=== PATIENT | female | born 1970 | race Hispanic/Latino ===

== ENCOUNTER 2016-12-31 07:44 | Emergency (ER) | payer MEDICAID, OTHER, SELFPAY ==
--- NOTE | 2016-12-31 08:42 | RAD ---
THREE VIEWS RIGHT SHOULDER: COMPARISON: None. HISTORY: Right shoulder pain. FINDINGS: Three views of the right shoulder show no evidence of acute fracture or dislocation. No soft tissue swelling is seen. No degenerative changes are present. IMPRESSION: Unremarkable exam. POS: JAYLA
== END 2016-12-31 09:05 | disposition home or self-care (01) ==
LOC: ERS 07:44
DX: S46.811A Strain of other muscles, fascia and tendons at shoulder and upper arm level, right arm, initial encounter (principal); J45.909 Unspecified asthma, uncomplicated; W06.XXXA Fall from bed, initial encounter

== ENCOUNTER 2019-04-13 19:44 | Emergency (ER) | payer BC, SELFPAY ==
--- NOTE | 2019-04-13 21:03 | RAD ---
Chest 2 views HISTORY: Dyspnea. Cough. FINDINGS: Cardiac silhouette and pulmonary vasculature are unremarkable. Mediastinum is midline allow ing for slight rightward convex curvature of the thoracic spine. Lungs are hyperinflated with flattening of each hemidiaphragm. Scattered calcified granulomata are consistent with healed granulomatous disease. No confluent airspa ce consolidation, pneumothorax, or pleural fluid. IMPRESSION: Pulmonary hyperinflation. No active cardiopulmonary abnormalities are otherwise demonstra fabien.
== END 2019-04-13 21:24 | disposition home or self-care (01) ==
LOC: ERS 19:44
DX: J20.9 Acute bronchitis, unspecified (principal); J45.909 Unspecified asthma, uncomplicated; F17.200 Nicotine dependence, unspecified, uncomplicated
CPT/HCPCS: 71046; 87804

== ENCOUNTER 2019-07-25 23:27 | Emergency (ER) | payer BC ==
[2019-07-26 00:01] LABS: #Eosinphils 0.1 thou/uL (0.0-0.7); #Lymphocytes 1.1 thou/uL (1.20-3.40); #Monocytes 0.7 thou/uL (0.11-0.59); #Neutrophils 8.7 thou/uL (1.40-6.50); %Basophils 0.3 % (0.0-1.0); %Eosinophils 1.1 % (0.0-10.0); %Lymphocytes 10.7 % (21.0-51.0); %Monocytes 6.1 % (0.0-10.0); %Neutrophils 81.8 % (42.0-75.0); Hemoglobin 15.2 g/dL (12.0-16.0); Mean Corpuscular HGB CONC 33.7 g/dL (32.0-36.0); Mean Corpuscular Hemoglobin 29.4 pg (27.0-31.0); Mean Corpuscular Volume 87.3 fL (78.0-98.0); Mean Platelet Volume 8.7 fL (7.4-10.4); Platelet Count 195 thou/uL (130-400); RBC Distribution Width 12.6 % (11.5-14.5); Red Blood Cell (RBC) Count 5.16 mill/uL (4.20-5.40); White Blood Cell (WBC) Count 10.6 thou/uL (4.8-10.8)
[2019-07-26 00:22] LABS: ALT (SGPT) 15 U/L (8-55); AST (SGOT) 16 U/L (5-34); Albumin 4.6 g/dL (3.5-5.0); Alkaline Phosphatase 90 U/L (40-110); Anion Gap 13 mmol/L (10-20); BUN (Urea Nitrogen) 18 mg/dL (7.0-18.7); Bilirubin, Total 0.5 mg/dL (0.2-1.2); Calc. Creatinine Clearance 0 mL/min (70-130); Calcium 9.4 mg/dL (7.8-10.44); Carbon Dioxide 22 mmol/L (22-29); Chloride 106 mmol/L (98-107); Estimated GFR-MDRD 79; Globulin 3.2 g/dL (2.4-3.5); Glucose 115 mg/dL (70-105); Lipase 22 U/L (8-78); Potassium 3.7 mmol/L (3.5-5.1); Protein, Total 7.8 g/dL (6.0-8.3); Sodium 137 mmol/L (136-145)
[2019-07-26 00:35] LABS: Bacteria/HPF None Seen HPF (None Seen); Bilirubin Negative (Negative); Blood, Urine Trace (Negative); Clarity Clear (Clear); Glucose, Urine (Dipstick) Normal (Negative); Leukocyte Negative Leu/uL (Negative); Nitrite Negative (Negative); Protein, Urine (Dipstick) 10 mg/dL (Neg-Trace); RBC/HPF 0-3 HPF (0-3); Squamous Epithelial 0-3 HPF (0-3); Urobilinogen Normal mg/dL (Less than 2); WBC/HPF 0-3 HPF (0-3)
[2019-07-26 00:37] LABS: Pregnancy Test - Urine (BHCG) Negative (Negative); Pregu Control Background? CLEAR/WHITE (CLR/WHITE); Pregu Control Bar Appear? YES (CONTROL BAR); Specific Gravity 1.034 (1.002-1.036)
[2019-07-26] MEDS ORDERED: Lidocaine Viscous Sol 2% 15 ml UD Cup ONE (01:54)
[2019-07-26] MEDS ORDERED: Mag-Al 1200 mg/1200 mg/30 ML UDCUP ONE (01:54)
--- NOTE | 2019-07-26 07:59 | ULT ---
PRELIMINARY REPORT/[facility]/EMERGENCY AFTER HOURS PROCEDURE EXAM: US Abdomen Limited, Right Upper Quadrant. CLINICAL HISTORY: Epigastric pain, N/V/D, sweating and chills TECHNIQUE: Real-time ultrasound of the right upper quadrant with image documentation. COMPARISON: None provided. FINDINGS: LIVER: Unremarkable. Measures 14.4 cm GALLBLADDER: No gallstone. No wall thickening. No pericholecystic fluid. COMMON BILE DUCT: No dilation. Measures 5.1 mm PANCREAS: Unremarkable as visualized. The distal pancreas is obscured by overlying bowel gas. RIGHT KIDNEY: Unremarkable. No hydronephrosis. Measures 10.1 cm IMPRESSION: Unremarkable right upper quadrant ultrasound. ELECTRONICALLY SIGNED BY: Allan Wood MD Jul 26, 2019 4:23:45 AM CDT This report is intended for review by the ordering physician only, in accordance of law. If you recei ve this report in error, please call [facility] at [phone]. FINAL REPORT Final report by Dr. Mantilla Emergency after hours study ULTRASOUND ABDOMEN LIMITED: (RIGHT UPPER QUADRANT) DATE: 07/26/2019 HISTORY: Epigastric pain, nausea, vomiting, and chills, in 48-year-old female FINDINGS: Gallbladder: Normal wall thickness. No gallstones or sludge identified. No pericholecystic fluid. Liver: Normal parenchymal echogenicity. Right kidney: No hydronephrosis. Pancreas: Distal body and tail Obscured by shadowing from bowel gas. Common duct caliber: 5 mm. Agree with preliminary report by [facility] IMPRESSION: 1) no pathology identified. 2) much of pancreas not visualized. Transcribed Date/Time: 07/26/2019 8:07 AM
--- NOTE | 2019-07-27 13:56 | EKG ---
Test Reason : Blood Pressure : / mmHG Vent. Rate : 078 BPM Atrial Rate : 078 BPM P-R Int : 156 ms QRS Dur : 080 ms QT Int : 394 ms P-R-T Axes : 065 015 067 degrees QTc Int : 449 ms Normal sinus rhythm Normal ECG Confirmed by AUDIE CHASE ([id number]), editor at large ADY KHAN ([id number]) on 07/27/2019 1:56:27 PM Referred By: Confirmed By:AUDIE CHASE
== END 2019-07-26 05:06 | disposition home or self-care (01) ==
LOC: ERS 23:27
DX: R10.10 Upper abdominal pain, unspecified (principal); R10.13 Epigastric pain; J45.909 Unspecified asthma, uncomplicated; R11.2 Nausea with vomiting, unspecified
CPT/HCPCS: 36415; 76705; 80053; 81003; 81015; 81025; 83690; 85025; 93005

== ENCOUNTER 2019-08-07 10:33 | Outpatient (CLI) | payer BC ==
--- NOTE | 2019-08-07 12:21 | CT ---
CT Abdomen Pelvis W Con: 08/07/2019 12:00 AM CLINICAL INFORMATION: Abdominal pain and cramping for 6 months COMPARISON: None. TECHNIQUE: Multiple contiguous axial images were obtained and a CT of the abdomen and pelvis with IV contrast. Oral contrast was administered. Coronal and sagittal reformats were performed. FINDINGS: Lower Chest: Scattered opacities are seen in the lung base. There is a nodule measuring 1.4 cm in siz e in the right lung base. Abdomen: Liver: within normal limits. Bile Ducts: Normal caliber. Gallbladder: No calcified gallstones. Normal caliber wall. Pancreas: within normal limits. Spleen: within normal limits. Adrenals: within normal limits. Kidneys: within normal limits. Pelvis: Reproductive Organs: Multiple uterine fibroids measuring up to 6.6 cm in size. Ureters: within normal limits. Bladder: within normal limits. Peritoneum: No ascites or free air, no fluid collection. Bowel: Normal caliber. Normal appendix. Mesentery and Retroperitoneum: No enlarged mesenteric or retroperitoneal lymph nodes. Vessels: Normal. Abdominal Wall: within normal limits. Bones: Within normal limits IMPRESSION: 1. No evidence of acute intraabdominal or pelvic abnormality. 2. Scattered nodules in the lung bases to be further evaluated with a chest CT. 3. Fibroid uterus
== END 2019-08-07 10:34 | disposition home or self-care (01) ==
LOC: SCSCT 10:33
PROVIDERS: ATTEND Family Medicine
DX: R10.10 Upper abdominal pain, unspecified (principal); R91.8 Other nonspecific abnormal finding of lung field; D25.9 Leiomyoma of uterus, unspecified
CPT/HCPCS: 74160; 74177

== ENCOUNTER 2019-08-21 08:08 | Outpatient (CLI) | payer BC ==
--- NOTE | 2019-08-21 09:17 | CT ---
CHEST CT WITH CONTRAST: HISTORY: Multiple nodules noted on abdomen and pelvic CT 08/07/2019. FINDINGS: Mediastinum: Nonenlarged precarinal lymph node measures 1.1 x 1.0 cm. No mediastinal mass, lymphadeno augusto or hematoma. Heart: Normal size. No significant pericardial fluid. Upper abdomen: No acute abnormality. Trachea and central bronchi: Patent. Pleural spaces: No effusion. Pneumothorax: None. Right lung: Multiple groundglass and solid nodules scattered throughout the lung parenchyma. Largest solid nodule appears to be in the right lower lobe and measures 1.4 x 1.5 cm. Left lung: Multiple groundglass and solid nodules scattered throughout the lung parenchyma. The large st solid nodule in the medial left lower lobe and measures 1.7 x 1.5 cm. Osseous structures: No lytic or blastic lesions. IMPRESSION: Multifocal groundglass and solid nodules scattered throughout the lung parenchyma. Findings may repre sent infectious, inflammatory or neoplastic process. Correlate clinically. PET imaging may be beneficial. Transcribed Date/Time: 08/21/2019 9:30 AM
--- NOTE | 2019-08-21 09:37 | ULT ---
Exam: Pelvic ultrasound HISTORY: Uterine fibroids seen on recent CT scan exam. COMPARISON: CT abdomen and pelvis on 08/07/2019 TECHNIQUE: Multiple grayscale and color Doppler images were obtained in a transabdominal pelvic ultra sound. Spectral analysis of the Doppler waveforms of the ovaries were performed. FINDINGS: CERVIX: Not well visualized due to shadowing. UTERUS: Mildly enlarged measuring 10.4 cm x 7.7 cm x 6.8 cm. There are hypoechoic and heterogeneous m asses seen within the fundus and body of the uterus. Largest mass is seen in the uterine fundus which measures 5.5 cm in maximal dimensions. Findings are most compatible with multiple uterine fibro ids. ENDOMETRIAL STRIPE: Endometrial stripe is visualized in the region of the lower body of the uterus wh ich measures 22 mm in thickness which is thickened. No fluid or fluid collection is seen in the endometrial canal.. No free fluid is present. RIGHT OVARY: Normal flow, without focal mass. LEFT OVARY:A 2 cm anechoic structure seen in the left ovary which demonstrates characteristics most c ompatible with a small cyst. Flow is present in the left ovary. IMPRESSION: 1. Thickening of the endometrial stripe which measures 22 mm. 2. Multiple uterine fibroids.
[2019-08-21] MEDS ORDERED: Iopamidol-370 76% 500 ML 1 ML ONE (16:26)
== END 2019-08-21 08:09 | disposition home or self-care (01) ==
LOC: BICCT 08:08
PROVIDERS: ATTEND Family Medicine
DX: R91.8 Other nonspecific abnormal finding of lung field (principal); D25.9 Leiomyoma of uterus, unspecified; R93.89 Abnormal findings on diagnostic imaging of other specified body structures
CPT/HCPCS: 71260; 76856; 93976; Q9967

== ENCOUNTER 2019-10-31 13:27 | Outpatient (CLI) | payer BC, OTHER ==
[2019-11-01 12:35] LABS: SARS-CoV-2 MS2 Positive; SARS-CoV-2 N Gene Positive; SARS-CoV-2 S Gene Negative; SARS-CoV-2 by NAA DETECTED (NotDetected); SARS-CoV-2 orf1ab Positive
== END 2019-10-31 13:28 | disposition home or self-care (01) ==
LOC: LABSCS 13:27
PROVIDERS: ATTEND Internal Medicine Pulmonary Disease
DX: U07.1 COVID-19 (principal); R06.00 Dyspnea, unspecified
CPT/HCPCS: 87635; U0003

== ENCOUNTER 2019-12-19 10:09 | Emergency (ER) | payer BC ==
[2019-12-19] MEDS ORDERED: Cyclobenzaprine 10 MG TAB ONE ×3 (12:16→12:38)
[2019-12-19] MEDS ORDERED: Metoclopramide HCl 10 MG/2 ML VIAL ONE ×3 (12:16→12:38)
[2019-12-19] MEDS ORDERED: Ketorolac Tromethamine 30 MG/ML VIAL ONE ×2 (12:16→12:36)
== END 2019-12-19 14:55 | disposition home or self-care (01) ==
LOC: ERS 10:09
DX: G44.209 Tension-type headache, unspecified, not intractable (principal); J45.909 Unspecified asthma, uncomplicated
CPT/HCPCS: 96365; 96375; J1885; J2765

== ENCOUNTER 2019-12-24 15:29 | Outpatient (CLI) | payer BC ==
--- NOTE | 2019-12-24 16:10 | RAD ---
2 views of the lumbar spine: 12/24/2019 HISTORY: Pain FINDINGS: Lateral exam demonstrates normal lumbar vertebral body height and alignment. There is mild levoscoliosis of the lumbar spine with 13 degrees of levoscoliosis from superior endplate of T12 through inferior plate of L3. Lower lumbar spine facet hypertrophic change present. Lumbar pedicles appear intact on frontal imaging. No acute osseous abnormality. IMPRESSION: Degenerative changes. Mild lumbar spine levoscoliosis. No acute fracture or dislocation.
--- NOTE | 2019-12-24 16:35 | RAD ---
THORACIC SPINE 2 VIEWS: Date: 12/24/2019 HISTORY: Neck and back pain 1 week. FINDINGS: Very mild scoliotic change convex to the right. Vertebral bodies are normal in height. Some degenerat maikol osteophytic changes are seen. Pedicles are intact. IMPRESSION: Minimal scoliosis and arthritic changes of the spine. POS: [facility]
--- NOTE | 2019-12-24 16:48 | RAD ---
CERVICAL SPINE SERIES THREE VIEWS: 12/24/19 HISTORY: Neck and back pain. Vertebral bodies are normal in height. There is degenerative osteophytes and mild disc narrowing at C 5-6. Slight cupping to the superior end plate of T1 is noted. May possibly be the sequela of an old i njury. I have no history of trauma. Cervical ribs are noted. IMPRESSION: Arthritic change of the spine. POS: [facility]
== END 2019-12-24 15:30 | disposition home or self-care (01) ==
LOC: BICRAD 15:29
PROVIDERS: ATTEND Family Medicine
DX: M54.5 Low back pain (principal); M54.9 Dorsalgia, unspecified; M54.2 Cervicalgia; M47.812 Spondylosis without myelopathy or radiculopathy, cervical region; M47.814 Spondylosis without myelopathy or radiculopathy, thoracic region; M47.816 Spondylosis without myelopathy or radiculopathy, lumbar region; M41.9 Scoliosis, unspecified
CPT/HCPCS: 72040; 72072; 72100

== ENCOUNTER 2021-02-20 13:37 | Emergency (ER) | payer BC ==
[2021-02-20] MEDS ORDERED: Dexamethasone 4 MG TAB ONE (14:28)
[2021-02-21 12:19] LABS: SARS-CoV-2 PCR by NAA Not Detected (NotDetected)
== END 2021-02-20 15:29 | disposition home or self-care (01) ==
LOC: ERS 13:37
DX: J06.9 Acute upper respiratory infection, unspecified (principal); Z20.822 Contact with and (suspected) exposure to COVID-19; J45.909 Unspecified asthma, uncomplicated
CPT/HCPCS: 71045; 87804; J8540; U0003; U0005

== ENCOUNTER 2021-03-24 11:07 | Outpatient (CLI) | payer OTHER | END 2021-03-24 11:08 | disposition home or self-care (01) | LOC: BICMAMMO 11:07 | PROVIDERS: ATTEND Family Medicine | DX: Z12.31 Encounter for screening mammogram for malignant neoplasm of breast (principal) | CPT/HCPCS: 77063; 77067 ==

== ENCOUNTER 2021-06-21 14:23 | Outpatient (CLI) | payer OTHER | END 2021-06-21 14:24 | disposition home or self-care (01) | LOC: ULT 14:23 | PROVIDERS: ATTEND Family Medicine | DX: N95.0 Postmenopausal bleeding (principal) | CPT/HCPCS: 76856; 93976 ==

== ENCOUNTER 2021-07-13 09:19 | Outpatient (CLI) | payer OTHER ==
[2021-07-13] MEDS ORDERED: Magnevist 469MG/ML 20 ML VIAL ONE (15:24)
== END 2021-07-13 09:20 | disposition home or self-care (01) ==
LOC: MRI 09:19
PROVIDERS: ATTEND Family Medicine
DX: N85.8 Other specified noninflammatory disorders of uterus (principal); N95.0 Postmenopausal bleeding; D25.9 Leiomyoma of uterus, unspecified
CPT/HCPCS: 72197; A9579

== ENCOUNTER 2021-10-19 11:34 | Outpatient (CLI) | payer OTHER | END 2021-10-19 11:35 | disposition home or self-care (01) | LOC: RAD 11:34 | PROVIDERS: ATTEND Internal Medicine | DX: J45.50 Severe persistent asthma, uncomplicated (principal) | CPT/HCPCS: 71046 ==

== ENCOUNTER 2022-03-10 14:28 | Outpatient (CLI) | payer BC | END 2022-03-10 14:29 | disposition home or self-care (01) | LOC: RAD 14:28 | PROVIDERS: ATTEND Internal Medicine | DX: R06.00 Dyspnea, unspecified (principal) | CPT/HCPCS: 71046 ==

== ENCOUNTER 2023-07-14 11:09 | Outpatient (CLI) | payer BC | END 2023-07-14 11:10 | disposition home or self-care (01) | LOC: BICRAD 11:09 | PROVIDERS: ATTEND Family Medicine | DX: M25.531 Pain in right wrist (principal) ==